=== PATIENT | male | born 1945 | race Two or more races ===

== ENCOUNTER 2018-12-29 07:54 | Outpatient (CLI) | payer OTHER | END 2018-12-29 07:57 | disposition home or self-care (01) | LOC: SONOGRAMA 07:54 | DX: E04.8 Other specified nontoxic goiter (principal) ==

== ENCOUNTER 2019-01-20 09:46 | Outpatient (CLI) | payer OTHER | END 2019-01-20 09:53 | disposition home or self-care (01) | LOC: TOM 09:46 | DX: C73 Malignant neoplasm of thyroid gland (principal) ==

== ENCOUNTER 2019-02-17 04:56 | Inpatient (IN) | payer OTHER ==
[~2019-02-17] VITALS: Ht 165.1 cm; Wt 76.2 kg
[~2019-02-17 04:56] MED LIST: CRESTOR5 MG; NORVASC5 MG; SINGULAIR10 MG
== END 2019-02-19 10:07 | disposition home or self-care (01) | DRG 627 ==
LOC: CIR.AMB 04:56 → EDSTATUS 07:30 → SURG 07:30 → O/R 12:18 → SURG 13:47 → EDBD 02-19 10:07
PROVIDERS: ADMIT Specialist
PROC: 0GTH0ZZ Resection of Right Thyroid Gland Lobe, Open Approach (ICD-10-PCS; 2019-02-17)
PROC: 0GTG0ZZ Resection of Left Thyroid Gland Lobe, Open Approach (ICD-10-PCS; principal; 2019-02-17 07:00)
DX: C73 Malignant neoplasm of thyroid gland (principal); R33.8 Other retention of urine; E83.51 Hypocalcemia

== ENCOUNTER 2019-02-21 07:10 | Emergency (ER) | payer OTHER ==
[~2019-02-21] VITALS: Ht 167.6 cm; Wt 74.8 kg
[2019-02-21] MEDS ORDERED: TAMS0.4C PO (07:26)
[2019-02-21] MEDS ORDERED: CALCIUM500 M1 PO (07:26)
== END 2019-02-21 10:03 | disposition home or self-care (01) ==
LOC: ER 07:10 → EDBD 07:37 → ER 07:37
DX: E89.0 Postprocedural hypothyroidism (principal)

== ENCOUNTER 2019-03-05 13:48 | Emergency (ER) | payer OTHER ==
[~2019-03-05] VITALS: Ht 167.6 cm; Wt 74.8 kg
[~2019-03-05 13:48] MED LIST changes: +CALCIUM500 M1 PO; +TAMS0.4C PO
[2019-03-05] MEDS ORDERED: SYNTHROID112 MCG (13:58)
== END 2019-03-05 15:52 | disposition home or self-care (01) ==
LOC: ER 13:48 → EDBD 14:02 → ER 14:02
DX: J40 Bronchitis, not specified as acute or chronic (principal)

== ENCOUNTER 2019-03-11 08:17 | Outpatient (CLI) | payer OTHER ==
[~2019-03-11] VITALS: Ht 167.6 cm; Wt 76.2 kg
[~2019-03-11 08:17] MED LIST changes: +SYNTHROID112 MCG
== END 2019-03-11 09:11 | disposition home or self-care (01) ==
LOC: OFIC 805 08:17
DX: J38.01 Paralysis of vocal cords and larynx, unilateral (principal); J31.0 Chronic rhinitis; R49.8 Other voice and resonance disorders; C73 Malignant neoplasm of thyroid gland

== ENCOUNTER 2019-03-13 07:20 | Outpatient (CLI) | payer OTHER | END 2019-03-13 07:27 | disposition home or self-care (01) | LOC: LAB 07:20 | DX: C73 Malignant neoplasm of thyroid gland (principal) ==

== ENCOUNTER 2019-03-28 09:29 | Emergency (ER) | payer OTHER ==
[~2019-03-28] VITALS: Ht 167.6 cm; Wt 74.8 kg
[2019-03-28] MEDS ORDERED: SILODOSIN4 MG PO (10:02)
== END 2019-03-28 16:34 | disposition home or self-care (01) ==
LOC: ER 09:29
DX: R10.13 Epigastric pain (principal)

== ENCOUNTER 2019-03-30 06:32 | Outpatient (CLI) | payer OTHER ==
[~2019-03-30 06:32] MED LIST changes: +SILODOSIN4 MG PO
== END 2019-03-30 06:35 | disposition home or self-care (01) ==
LOC: LAB 06:32
DX: C73 Malignant neoplasm of thyroid gland (principal); E89.0 Postprocedural hypothyroidism

== ENCOUNTER 2019-04-02 12:23 | Outpatient (CLI) | payer OTHER | END 2019-04-02 12:26 | disposition home or self-care (01) | LOC: NUCLEAR 12:23 | DX: C73 Malignant neoplasm of thyroid gland (principal); E89.0 Postprocedural hypothyroidism | CPT/HCPCS: 79005; A9517 ==

== ENCOUNTER → 2019-04-09 10:00 | Outpatient (CLI) | payer OTHER | END | disposition home or self-care (01) | LOC: NUCLEAR 10:00 | DX: C73 Malignant neoplasm of thyroid gland (principal); E89.0 Postprocedural hypothyroidism ==

== ENCOUNTER 2021-06-15 10:14 | Outpatient (CLI) | payer OTHER | END 2021-06-15 10:27 | disposition home or self-care (01) | LOC: SONOGRAMA 10:14 | PROVIDERS: ATTEND Specialist | DX: C73 Malignant neoplasm of thyroid gland (principal) ==